=== PATIENT | female | born 1970 | race Caucasian/White ===

== ENCOUNTER 2016-06-02 21:39 | Emergency (ER) | payer OTHER ==
[~2016-06-02] VITALS: Ht 162.6 cm; Wt 68.0 kg
--- NOTE | 2016-06-02 23:29 | NUR ---
Patient discharged to home in stable conditon. Written and verbal after care instructions given. Patient verbalizes understanding of instructions. Ambulated from ER with stable gait. All belongings with patient.
[2016-06-02 23:30] VITALS: BP 132/80
== END 2016-06-02 23:33 | disposition home or self-care (01) ==
LOC: ER 21:39
DX: R07.89 Other chest pain (principal)
CPT/HCPCS: 71020; A4663